=== PATIENT | female | born 1940 | race African-American/Black ===

== ENCOUNTER → 2016-11-10 | Outpatient (CLI) | payer MEDICARE, MEDICAID | END | disposition home or self-care (01) | LOC: CT 08:29 | PROVIDERS: ATTEND Internal Medicine Geriatric Medicine | DX: G31.89 Other specified degenerative diseases of nervous system (principal); I99.8 Other disorder of circulatory system; R22.1 Localized swelling, mass and lump, neck | CPT/HCPCS: 70450; 70490 ==

== ENCOUNTER → 2016-12-08 | Outpatient (CLI) | payer MEDICARE, MEDICAID | END | disposition home or self-care (01) | LOC: MRI 10:24 | PROVIDERS: ATTEND Internal Medicine Geriatric Medicine | DX: S43.401A Unspecified sprain of right shoulder joint, initial encounter (principal); M25.411 Effusion, right shoulder; X58.XXXA Exposure to other specified factors, initial encounter; Y93.89 Activity, other specified; Y92.89 Other specified places as the place of occurrence of the external cause; Y99.8 Other external cause status | CPT/HCPCS: 73221 ==

== ENCOUNTER → 2017-05-01 | Outpatient (CLI) | payer MEDICARE, MEDICAID ==
[~2017-05-01] MED LIST: AMLO2.5T45 MT; AMYL1CAP61 PO; CARV6.2548 PO; ERGO2000 PO; VALS160T2 PO
== END | disposition home or self-care (01) ==
LOC: CT 07:37
PROVIDERS: ATTEND Internal Medicine Geriatric Medicine
DX: J84.10 Pulmonary fibrosis, unspecified (principal); K76.0 Fatty (change of) liver, not elsewhere classified; N28.1 Cyst of kidney, acquired; Z85.07 Personal history of malignant neoplasm of pancreas
CPT/HCPCS: 71250

== ENCOUNTER → 2018-03-08 | Outpatient (CLI) | payer MEDICARE, MEDICAID | END | disposition home or self-care (01) | LOC: US 07:34 | PROVIDERS: ATTEND Internal Medicine Geriatric Medicine | DX: K76.0 Fatty (change of) liver, not elsewhere classified (principal); N28.1 Cyst of kidney, acquired | CPT/HCPCS: 76700 ==

== ENCOUNTER → 2018-12-06 | Outpatient (CLI) | payer MEDICARE, MEDICAID | END | disposition home or self-care (01) | LOC: MRI 10:45 | PROVIDERS: ATTEND Internal Medicine Geriatric Medicine | DX: M19.012 Primary osteoarthritis, left shoulder (principal); M75.102 Unspecified rotator cuff tear or rupture of left shoulder, not specified as traumatic | CPT/HCPCS: 73221 ==